=== PATIENT | female | born 1940 | race Caucasian/White ===

== ENCOUNTER 2019-05-29 05:17 | Emergency (ER) | payer MEDICARE, SELFPAY ==
--- NOTE | ~2019-05-29 | XR_ITS ---
EXAMINATION: XR knee RT 3V DATE: 05/29/2019 07:09 INDICATION: Right knee pain post fall TECHNIQUE: Anteroposterior, oblique and crosstable lateral views of the right knee were obtained COMPARISON: None. FINDINGS: Alignment is normal. No fracture. Joint spaces appear relatively preserved on nonweightbearing imagi ng. Tiny marginal osteophytes along the patella. Small enthesophyte at the patellar insertion of the quadriceps tendon. Likely small right knee joint effusion at the suprapatellar pouch without evident layering lipohemarthrosis. Soft tissues are unremarkable. IMPRESSION: 1. Likely small right knee joint effusion. No acute osseous abnormality. Reviewed, dictated and finalized at location A. WRESTLER
--- NOTE | ~2019-05-29 | XR_ITS ---
EXAMINATION: XR pelvis 1-2V DATE: 05/29/2019 07:09 INDICATION: Dementia, found down post fall with injury to the right knee. TECHNIQUE: An anteroposterior view of the pelvis was obtained. COMPARISON: 12/23/2018 FINDINGS: Mild levocurvature of the lumbar spine with moderate spondylosis. Bilateral hips are normal alignment with relatively preserved joint spaces. Mild bilateral sacroiliac osteoarthritis. No fractures ident ified. Phleboliths in the pelvis. IMPRESSION: 1. No acute osseous abnormality. Reviewed, dictated and finalized at location A. NE AGENT
--- NOTE | ~2019-05-29 | CT_ITS ---
EXAMINATION: CT brain wo con DATE: 05/29/2019 06:50 INDICATION: Found down post fall. Dementia. TECHNIQUE: Computed tomography (CT) of the head was performed without intravenous contrast. Sagittal and coronal reconstructions were performed. The mA was adjusted according to patient size. Iterative reconstruction technique was employed. The dose-length product was 605.33 mGy-cm. COMPARISON: head CT dated 12/23/2018 FINDINGS: Chronic osseous defect at the junction of the left nasal bone and anterior aspect of the medial wall of the right orbit. No acute fracture. 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 No acute intra cranial hemorrhage, acute infarction or abnormal extra axial fluid collection. There is mild to moder ate scattered white matter hypoattenuation consistent with chronic small vessel ischemic disease. Sym metric prominence of the sulci consistent with mild to moderate age-appropriate diffuse cerebral volu me loss. Ventricles are normal and symmetric. No mass/mass effect. Changes of bilateral intraocular l ens replacement. Mucosal thickening in the bilateral ethmoid and maxillary sinuses. Fluid partially o pacifying the left frontal sinus. The orbits and mastoid air cells are normal. Intracranial calcified cerebral atherosclerosis is noted. IMPRESSION: 1. No acute fracture or acute intracranial process. 2. 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 3. Age-related changes including mild to moderate diffuse volume loss and scattered white matter hypo attenuation consistent with chronic small vessel ischemic disease. 4. Sinus disease with layering fluid/mucus in the left frontal sinus. Reviewed, dictated and finalized at location A. [employer]BLER IMPRESSION: 1. No acute fracture or acute intracranial process. 2. 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 3. Age-related changes including mild to moderate diffuse volume loss and scatt ered white matter hypoattenuation consistent with chronic small vessel ischemic disease. 4. Sinus disease with layering fluid/mucus in the left frontal sinus.
--- NOTE | ~2019-05-29 | XR_ITS ---
EXAMINATION: XR shoulder RT min 2V DATE: 05/29/2019 07:09 INDICATION: Right shoulder pain post fall TECHNIQUE: AP internally and externally rotated, AP oblique externally rotated and transscapular Y vi ews of the right shoulder were obtained. COMPARISON: None FINDINGS: Normal alignment. No fracture. Glenohumeral joint space is normal. Moderate acromioclavicular joint osteoarthritis. Enthesophytes versus heterotopic ossification related to old injury along the clavicu lar insertion of the coracoclavicular ligament. Soft tissues are unremarkable. Visualized portions of the lungs are clear. IMPRESSION: Moderate acromioclavicular osteoarthritis. No acute osseous abnormality. Reviewed, dictated and finalized at location A. R[employer] SUPERVISOR
[2019-05-29 05:17] VITALS: BP 198/80; PULSE 67; RESP 20; TEMP 36.6; O2SAT 93
[2019-05-29 06:32] VITALS: BP 170/54; PULSE 62; RESP 18; O2SAT 100
--- NOTE | 2019-05-29 09:18 | ED.GENADULT ---
HPI - General Adult General Chief complaint: Fall Stated complaint: fall Time Seen by Provider: 05/29/19 06:22 Source: family and EMS Mode of arrival: EMS Limitations: dementia History of Present Illness HPI narrative: Patient is a 78-year-old with a history of dementia, hypertension, hypercholesteremia was [facility] with the complaints of fall. Patient was found on the side of the bed. Complaining of left shoulder pain, and right knee pain and hip pain. As per the prison records no history of loss of consciousness. Not much of history could be obtained from the patient secondary to her dementia. Related Data Allergies Allergy/AdvReac Type Severity Reaction Status Date / Time latex Allergy Unknown Unknown Verified 05/29/19 05:33 lorazepam Allergy Unknown Hallucinati Verified 05/29/19 05:33 ng SEASONAL ALLERGENS Allergy Mild Sneezing Uncoded 05/29/19 05:33 Review of Systems Review of Systems: ROS unobtainable: unobtainable due to mental status PMFSH Family History Family History (Updated 12/07/13 @ 07:13 by DOCTOR UNKNOWN) Mother Family history of malignant neoplasm Other Hypertension Social History Social History Smoking status: Former smoker Smoking end date: 04/12/11 Alcohol intake: never Exam Narrative: Exam Narrative: GENERAL: Well-appearing, well-nourished, and in no acute distress. HEAD: Normocephalic, atraumatic. EYES: PERRLA and EOMI. ENT: Nares clear, no rhinorrhea or epistaxis. Mucous membranes moist. NECK: Supple. CHEST: Clear to auscultation. No respiratory distress. HEART: Regular rate and rhythm. No murmur heard. Normal peripheral pulses. ABDOMEN: Soft, non tender, non distended, normal active bowel sounds. EXTREMITIES: Normal range of motion. No edema. Minor bruising noted on the left shoulder, right knee , pelvis intact SKIN: Warm, dry, no rash. NEURO: No focal deficits. Alert and oriented x1 PSYCH: Normal mood and affect. Course Vital Signs Vital signs: Vital Signs Temperature 36.6 C 05/29/19 05:17 Pulse Rate 67 05/29/19 05:17 Respiratory Rate 20 05/29/19 05:17 Blood Pressure 198/80 H 05/29/19 05:17 Pulse Oximetry 93 05/29/19 05:17 Temperature 36.6 C 05/29/19 05:17 Pulse Rate 62 05/29/19 06:32 Respiratory Rate 18 05/29/19 06:32 Blood Pressure 170/54 H 05/29/19 06:32 Pulse Oximetry 100 05/29/19 06:32 Medical Decision Making Vital Signs Vital Signs: Vital Signs Temperature 36.6 C 05/29/19 05:17 Pulse Rate 67 05/29/19 05:17 Respiratory Rate 20 05/29/19 05:17 Blood Pressure 198/80 H 05/29/19 05:17 Pulse Oximetry 93 05/29/19 05:17 Temperature 36.6 C 05/29/19 05:17 Pulse Rate 62 05/29/19 06:32 Respiratory Rate 18 05/29/19 06:32 Blood Pressure 170/54 H 05/29/19 06:32 Pulse Oximetry 100 05/29/19 06:32 Imaging Data Radiologist's impression: ITS Impressions Head CT 05/29/19 07:23 IMPRESSION: 1. No acute fracture or acute intracranial process. 2. 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 3. Age-related changes including mild to moderate diffuse volume loss and scattered white matter hypoattenuation consistent with chronic small vessel ischemic disease. 4. Sinus disease with layering fluid/mucus in the left frontal sinus. Knee X-Ray 05/29/19 07:30 IMPRESSION: 1. Likely small right knee joint effusion. No acute osseous abnormality. Pelvis X-Ray 05/29/19 07:33 IMPRESSION: 1. No acute osseous abnormality. Shoulder X-Ray 05/29/19 07:36 IMPRESSION: Moderate acromioclavicular osteoarthritis. No acute osseous abnormality. Discharge Plan Discharge Clinical Impression: Contusion of left shoulder, Contusion of hip, right Patient Disposition: NH Correction/Asst Living Condition: Stable Instructions: Contusion in Adults (ED) Additional Instructions: Fall precautions Follow-up/Referrals: Godwin Decker MD [[facility]
[2019-05-29 09:35] VITALS: BP 172/79; PULSE 56; RESP 16; O2SAT 99
== END 2019-05-29 09:35 ==
PROVIDERS: Emergency Provider Family Medicine; PCP Internal Medicine
DX: S40.012A Contusion of left shoulder, initial encounter (principal); S70.01XA Contusion of right hip, initial encounter; F03.90 Unspecified dementia, unspecified severity, without behavioral disturbance, psychotic disturbance, mood disturbance, and anxiety; I10 Essential (primary) hypertension; E78.5 Hyperlipidemia, unspecified; W19.XXXA Unspecified fall, initial encounter
CPT/HCPCS: 70450; 72170; 73030; 73562; 99284